=== PATIENT | female | born 1980 ===

== ENCOUNTER 2019-05-06 21:40 | Emergency (ER) | payer SELFPAY ==
[2019-05-06] MEDS ORDERED: Amoxicillin PO (*) 500 MG CAP PO ONE (22:16)
--- NOTE | 2019-05-06 22:26 | UC ---
Throat Pain/Nasal Mike HPI - HPI Summary HPI Summary: ABOUT ONE WEEK OF SORE THROAT, PAIN WITH SWALLOWING, EAR PRESSURE AND BODY ACHES. HAD FEVER INITIALLY BUT THAT HAS SINCE RESOLVED. TODAY FEELS LIKE HER SORE THROAT GOT SIGNIFICANTLY WORSE. SHE ALSO HAS SWOLLEN GLANDS. STATES SHE HAS HAD TONSILLITIS IN THE PAST AND USUALLY DOES NOT GET BETTER WITHOUT ANTIBIOTICS. - History of Current Complaint Chief Complaint: UCRespiratory Stated Complaint: THROAT PAIN Time Seen by Provider: 05/06/19 21:48 Hx Obtained From: Patient Hx Last Menstrual Period: 04/29/19 Onset/Duration: Gradual Onset, Lasting Days, Still Present Severity: Moderate Pain Intensity: 3 Pain Scale Used: 0-10 Numeric Cough: Nonproductive Associated Signs & Symptoms: Positive: Fever - Allergies/Home Medications Allergies/Adverse Reactions: Allergies Allergy/AdvReac Type Severity Reaction Status Date / Time No Known Allergies Allergy Verified 05/06/19 21:54 Home Medications: Home Medications Cetirizine HCl [Zyrtec] 10 mg PO DAILY 05/06/19 [History Confirmed 05/06/19] Ibuprofen TAB* [Advil TAB*] 400 mg PO Q6HR PRN 05/06/19 [History Confirmed 05/06] Norethindrone-E.estradiol-Iron [Taytulla 1 mg-20 Mcg Capsule] 1 cap PO DAILY 07/17 [History Confirmed 05/06/19] PMH/Surg Hx/FS Hx/Imm Hx Previously Healthy: Yes - Surgical History Surgical History: None - Family History Known Family History: Positive: Non-Contributory - Social History Alcohol Use: Weekly Substance Use Type: Marijuana Substance Use Comment - Amount & Last Used: Last week Smoking Status (MU): Smoker, Current Status Unknown Review of Systems All Other Systems Reviewed And Are Negative: Yes Constitutional: Positive: Fever - NOW RESOLVED ENT: Positive: Sore Throat, Ear Ache Respiratory: Positive: Cough Cardiovascular: Positive: Negative Gastrointestinal: Positive: Negative Physical Exam Triage Information Reviewed: Yes Appearance: Well-Appearing, No Pain Distress, Well-Nourished Vital Signs: Initial Vital Signs Temp 98.2 F 05/06/19 21:48 Pulse 85 05/06/19 21:48 Resp 16 05/06/19 21:48 BP 172/83 05/06/19 21:48 Pulse Ox 99 05/06/19 21:48 Laboratory Tests 05/06/19 22:01 Group A Strep Rapid Negative Eyes: Positive: Conjunctiva Clear ENT: Positive: Hearing grossly normal, TMs normal, Tonsillar exudate. Negative : Pharyngeal erythema, Tonsillar swelling Neck: Positive: Supple, Tenderness @ - SPFL CERVICAL LAD, Enlarged Nodes @ - SPFL CERVICAL LAD Respiratory Exam: Normal Cardiovascular Exam: Normal Abdomen Description: Positive: Soft Musculoskeletal: Positive: No Edema Neurological: Positive: Alert Psychological: Positive: Age Appropriate Behavior Skin: Negative: Rashes Throat Pain/Nasal Course/Dx - Course Course Of Treatment: STREP NEGATIVE. PATIENT STATES SHE HAS HAD SIMILAR SYMPTOMS IN THE PAST AND USUALLY REQUIRES ANTIBIOTICS. STATES SHE HAS TO TRAVEL BACK TO [facility] TOMORROW AND IS UP FOR A BIG PROMOTION AT WORK SO IS CONCERNED THAT SHE NEEDS TO GET BETTER QUICKLY POSSIBLE. IS REQUESTING ANTIBIOTICS TODAY. SINCE HER ILLNESS SEEMS TO HAVE TAKEN A TURN FOR THE WORSE OVER THE PAST WEEK AND GIVEN HER EXTENUATING CIRCUMSTANCES WILL GIVE AMOXICILLIN TWICE DAILY FOR 10 DAYS. FOLLOW-UP WITH HER PCP [place] IF SHE IS NOT IMPROVING EXPECTED. REPEAT BP 141/79. PT STATES SHE WILL FOLLOW-UP BACK HOME IN [facility]. - Differential Dx/Diagnosis Provider Diagnosis: Tonsillitis Discharge - Sign-Out/Discharge Documenting (check all that apply): Patient Departure All imaging exams completed and their final reports reviewed: No Studies - Discharge Plan Condition: Stable Disposition: HOME Prescriptions: Amoxicillin PO (*) [Amoxicillin 500 MG CAP*] 500 mg PO Q12H #19 cap Magic Mouth Was-SILVINO/MAAL/LIDO* 5 - 10 ml SWISH SWAL QID PRN #150 ml PRN Reason: Sore Throat Patient Education Materials: Tonsillitis (ED) Referrals: No Primary Care Phys,NOPCP [Primary Care Provider] - Additional Instructions: STREP TEST NEGATIVE. YOUR SYMPTOMS MAY BE VIRALLY MEDIATED BUT GIVEN THE LENGTH OF TIME YOU HAVE BEEN ILL AND YOUR UPCOMING TRAVEL WE WILL COVER YOU WITH ANTIBIOTICS. TAKE THE MEDICINE FOR THE FULL COURSE. REST, HYDRATE, OTC MEDS NEEDED. WILL ALSO TREAT WITH MAGIC MOUTHWASH. SEEK FOLLOW-UP WITH YOUR PCP BACK HOME IN [facility] IF YOU ARE NOT IMPROVING OVER THE NEXT 1-2 WEEKS. OTC CHLORASEPTIC OR CEPACOL LOZENGES AND/OR IBUPROFEN FOR SORE THROAT NEEDED ONCE SYMPTOMS RESOLVED - NEW TOOTHBRUSH DO NOT SHARE FOOD, DRINK, UTENSILS - Billing Disposition and Condition Condition: STABLE Disposition: Home
== END 2019-05-06 22:29 | disposition home or self-care (01) ==
LOC: UCEAST 21:40
DX: J03.90 Acute tonsillitis, unspecified (principal)
CPT/HCPCS: 87651; 99202; A9270-GY; G0463